=== PATIENT | female | born 1990 | race Two or more races ===

== ENCOUNTER 2018-11-12 07:34 | Inpatient (IN) | payer OTHER ==
[~2018-11-12] VITALS: Ht 165.1 cm; Wt 88.0 kg
[2018-11-14] MEDS ORDERED: NAPROXEN375 M1 PO (13:57)
== END 2018-11-14 16:12 | DRG 807 ==
LOC: OB/GYN 07:34 → LDR 07:34 → OB/GYN 17:12
PROVIDERS: ADMIT Obstetrics & Gynecology
PROC: 10E0XZZ Delivery of Products of Conception, External Approach (ICD-10-PCS; principal; 2018-11-12)
PROC: 4A0HXFZ Measurement of Products of Conception, Cardiac Rhythm, External Approach (ICD-10-PCS; 2018-11-12)
DX: O80 Encounter for full-term uncomplicated delivery (principal); Z37.0 Single live birth; Z3A.39 39 weeks gestation of pregnancy